=== PATIENT | female | born 2000 | race Caucasian/White ===

== ENCOUNTER 2024-04-04 08:12 | Oncology outpatient (recurring) (ONCR) | payer MEDICAID, SELFPAY ==
[2024-04-04] MEDS: rho(d) immune globulin 1,500 unit Syringe 1500 UNIT IM (08:21)
[2024-04-04 08:24] VITALS: BP 122/73; PULSE 90; TEMP 36.9; O2SAT 98
== END 2024-04-26 23:59 | disposition home or self-care (01) ==
LOC: ONCMED 08:12
PROVIDERS: Visit Provider Family Medicine
DX: Z67.11 Type A blood, Rh negative (principal); Z79.899 Other long term (current) drug therapy
CPT/HCPCS: 96372; J2790

== ENCOUNTER 2024-05-22 00:07 | Outpatient (CLI) | payer MEDICAID, SELFPAY ==
[2024-05-22 00:25] VITALS: BMI 27.2
[2024-05-22 00:29] VITALS: BP 132/69; PULSE 88
[2024-05-22 00:44] VITALS: BP 121/64; PULSE 104
[2024-05-22] MEDS: sodium chloride 0.9% 1,000 ML 999 ML IV (00:58)
[2024-05-22 02:32] VITALS: BP 122/69; PULSE 77
[2024-05-22 02:46] VITALS: BP 129/69; PULSE 77; O2SAT 95
== END 2024-05-22 02:56 | disposition home or self-care (01) ==
LOC: OPOB 00:08 → OBGYN 00:15
PROVIDERS: Visit Provider Family Medicine
DX: O26.899 Other specified pregnancy related conditions, unspecified trimester (principal); Z3A.00 Weeks of gestation of pregnancy not specified; R10.9 Unspecified abdominal pain
CPT/HCPCS: 83986; J7030

== ENCOUNTER 2024-06-05 18:20 | Outpatient (CLI) | payer MEDICAID, SELFPAY ==
[2024-06-05] VITALS (14 sets, daily range): BP systolic 124–137; BP diastolic 71–81; PULSE 78–130; RESP 17; O2SAT 98–99; BMI 27.6
[2024-06-05 18:59] LABS: Nitrazine Paper, PH Negative
[2024-06-05 19:07] LABS: Bacteria Urine 2+ /hpf; Hyaline Casts Urine 0-4 /lpf; RBC Urine 0-2 /hpf (0-2); WBC Urine 0-5 /hpf (0-5)
[2024-06-05 19:20] LABS: Bilirubin Urine Neg (Negative); Blood Urine Neg (Negative); Glucose Urine UA Norm (Normal); Ketones Urine Negative (Negative); Leukocyte Esterase Urine 2+ (Negative); Nitrate Urine Negative (Negative); Protein Urine Neg (Negative); Urine Appearance Cloudy (CLEAR); Urine Color Yellow (Yellow); Urobilinogen Urine Norm (Negative); pH Urine 8 (5-7)
[2024-06-05 19:21] LABS: Add Urine Culture? Yes
[2024-06-05 19:40] LABS: Urine Creatinine 28 mg/dL (28-217); Urine Protein Random 5 mg/dL
[2024-06-05 19:43] LABS: UPRO/UCREAT Ratio 0.18 mg/mg CR
== END 2024-06-05 20:15 | disposition home or self-care (01) ==
LOC: OPOB 18:28 → OBGYN 18:28
PROVIDERS: Visit Provider Family Medicine
DX: O26.899 Other specified pregnancy related conditions, unspecified trimester (principal); Z3A.00 Weeks of gestation of pregnancy not specified; I10 Essential (primary) hypertension
CPT/HCPCS: 36415; 59025; 81001; 82570; 83986; 84156; 87086; 99211

== ENCOUNTER 2024-06-10 12:58 | Outpatient (CLI) | payer MEDICAID, SELFPAY ==
[2024-06-10 13:01] VITALS: BMI 27.6
[2024-06-10 13:06] VITALS: BP 127/80; PULSE 100
[2024-06-10 13:08] VITALS: RESP 13
[2024-06-10 13:21] VITALS: BP 138/79; PULSE 76
[2024-06-10 13:35] VITALS: BP 140/78; PULSE 88
[2024-06-10 13:47] VITALS: BP 140/78; PULSE 88; RESP 16
== END 2024-06-10 13:49 | disposition home or self-care (01) ==
LOC: OPOB 12:58 → OBGYN 12:59
PROVIDERS: Visit Provider Family Medicine
DX: O26.899 Other specified pregnancy related conditions, unspecified trimester (principal); Z3A.00 Weeks of gestation of pregnancy not specified; R10.9 Unspecified abdominal pain
CPT/HCPCS: 59025; 99211

== ENCOUNTER 2024-06-20 15:14 | Outpatient (CLI) | payer MEDICAID, SELFPAY ==
[2024-06-20 15:28] VITALS: BP 132/81; PULSE 91
[2024-06-20 15:43] VITALS: BP 125/74; PULSE 86
[2024-06-20 15:52] VITALS: BMI 28.1
[2024-06-20 16:04] LABS: Nitrazine Paper, PH Inconclusive
[2024-06-20 16:12] LABS: Actim Prom Negative
[2024-06-20 16:13] VITALS: BP 124/73; PULSE 89
[2024-06-20 16:28] VITALS: BP 123/69; PULSE 86
[2024-06-20] MEDS: fluconazole 100 mg Tablet 150 MG PO (16:40)
== END 2024-06-20 16:45 | disposition home or self-care (01) ==
LOC: OPOB 15:14 → OBGYN 15:15
PROVIDERS: Visit Provider Family Medicine
DX: O26.899 Other specified pregnancy related conditions, unspecified trimester (principal); Z3A.00 Weeks of gestation of pregnancy not specified; N89.8 Other specified noninflammatory disorders of vagina
CPT/HCPCS: 59025; 83986; 84112; 99211; J9999

== ENCOUNTER 2024-07-01 09:46 | Inpatient (IN) | payer MEDICAID, SELFPAY ==
[2024-07-01] VITALS (52 sets, daily range): BP systolic 109–146; BP diastolic 55–87; PULSE 55–93; RESP 16–17; TEMP 35.8–36.6; O2SAT 100; BMI 28.6
[2024-07-01 07:40] LABS: Basophils % 0.4 %; Eosinophils # 0.1 10^3/uL (0.0-0.8); Eosinophils % 0.9 %; Hematocrit 30.6 % (36-47); Lymphocytes # 1.9 10^3/uL (0.8-4.8); Lymphocytes % 16.5 %; Mean Corpuscular HGB Conc 32.7 g/dL (30-55); Mean Corpuscular Hemoglobin 27.8 pg (27-33); Mean Platelet Volume 11.2 fL (7.4-10.4); Monocytes # 1.3 10^3/uL (0.2-0.9); Monocytes % 11.7 %; Neutrophils # 7.68 10^3/uL (1.8-7.7); Neutrophils % 68.2 %; Nucleated Red Blood Cells % 0 %; Platelet Count 172 10^3/cmm (157-399); Red Cell Distribution Width 15.3 % (12.1-15.1); White Blood Count 11.26 10^3/uL (3.29-11.43)
[2024-07-01] MEDS: dextrose 5%-lactated ringers 1,000 ML 125 ML IV (07:40)
[2024-07-01] MEDS: miSOPROStol 100 mcg tablet 25 MCG VAGINAL ×3 (07:40→16:59)
[2024-07-01] MEDS: ampicillin 2,000 MG in sodium chloride 0.9% (plus) 50 ML 100 MG IV (07:41)
[2024-07-01] MEDS: ampicillin 1,000 MG in sodium chloride 0.9% (plus) 50 ML 100 MG IV ×4 (11:40→23:21)
--- NOTE | 2024-07-01 16:15 | P.HP_ITS ---
Providers/Chief Complaint 2 Admitting Physician: Rishi Engel MD Chief Complaint: IOL HPI DIRECTOR OF ASSESSING History of Present Illness Merced Oglesby is a 23 year old G1, P0 female That presents for induction of labor. The patient has not had any significant complications during . Patient is GBS negative. Patient's had occasional contractions but nothing consistent. Present Details : 1 Labs Rubella: Immune RPR: Negative GBS: Positive Review of Systems 2 General: Reports: 10 or more systems reviewed and unremarkable except in HPI and below Medications/Allergies Home Medications ?Medication ?Instructions ?Recorded ?Confirmed ?Last Taken ?Type prcczqps-zqt-Wu-FA 1 mg 1 tab PO DAILY 07/01/24 05/21/24 History tablet Allergies Allergy/AdvReac Type Severity Reaction Status Date / Time adhesive Allergy ALGY-Rash Verified 06/05/24 21:25 Vitals/I&O/Wt Last Vital Signs Temp 97.2 F L 07/01/24 11:45 Pulse 75 07/01/24 16:03 Resp 16 07/01/24 07:06 BP 126/82 07/01/24 16:03 O2 Del Method Room Air 07/01/24 07:45 07/01/24 07/01/24 07/01/24 06:59 14:59 22:59 Intake Total 300.000 / 300.000 0 / 300.000 Balance 300.000 / 300.000 0 / 300.000 Weight last 48 hrs Weight 83.007 kg Physical Exam 2 Const: COMMON NORMALS: no acute distress and patient oriented x3 Resp: COMMON NORMALS: normal respiratory effort, No retractions and No use of accessory muscles Cardio: COMMON NORMALS: no JVD, regular rate and regular rhythm GI: COMMON NORMALS: Normal to inspection, nondistended, normoactive bowel sounds present Extremity: COMMON NORMALS: no clubbing, cyanosis or edema Neuro: COMMON NORMALS: patient oriented x3, moves all extremities, no focal motor deficits and no sensory deficits noted Psych: COMMON NORMALS: mental status grossly normal Skin: COMMON NORMALS: no rashes or lesions noted Data 07/01/24 07:20 Results Labs OB ([facility]): 2 Blood Type A Negative Today Antibody Screen Negative Today Hct, (36-47) 30.6 % L Today Hgb, (11.27-16.99) 10.00 g/dL L Today Rho(D) Type Rh negative Today Plt Count, (157-399) 172 10^3/cmm Today Micro Urine Specimen 06/05/24 A&P Assessment and plan (1) Post term over 40 weeks: Proceed with Cytotec for cervical ripening. PDMP PDMP Reviewed: Not Reviewed Attestations 2 Medical Necessity Statement*: Admit for IOL. Anticipate 2 midnight stay. Coding Level of Care Code Acute Code for Chg Fwd Diagnoses Post term over 40 weeks O48.0
[2024-07-01] MEDS: lactated ringers 1,000 ML 999 ML IV (19:11)
--- NOTE | 2024-07-01 20:29 | ANES.PREANE2 ---
Pre-Anesthetic Assessment Height/Weight: Height 1.7 m Weight 83.007 kg Temp Pulse Resp BP Pulse Ox O2 Del Method 96.4 F L 74 17 133/66 100 Room Air 07/01/24 18:50 07/01/24 20:28 07/01/24 18:50 07/01/24 20:28 07/01/24 20:22 07/01/24 07:45 Preop Diagnosis: Labor pain MALDONADO Was Beta Teri taken within 24 hours: N/A Was Clonidine taken within 24 hours: N/A Social No tobacco Exam alert, oriented x 3, clear to auscultation bilaterally and regular rate & rhythm Airway Submandibular: within normal limits Cervical ROM: within normal limits Mallampati: Class II Dentition: full History/ROS No significant history except as noted CV/HEM Arrythmia Cardiac ablation 2016 None reported Hepatic None reported GI None reported Metabolic None reported Musc/skel Scoliosis Neuropsych None reported Anesthetic Plan ASA status: 2 Anesthesia: Anesthesia Evaluation and Regional (specify below) (MALDONADO) Risk of > 500 ml blood loss (7ml/kg in children): No Medications/Allergies Home Medications ?Medication ?Instructions ?Recorded ?Confirmed ?Last Taken ?Type qfilafss-wqa-Uq-FA 1 mg 1 tab PO DAILY 05/22/24 07/01/24 05/21/24 History tablet Allergies Allergy/AdvReac Type Severity Reaction Status Date / Time adhesive Allergy ALGY-Rash Verified 06/05/24 21:25 Current Medications Generic Name Dose Route Start Last Admin Trade Name Freq PRN Reason Stop Dose Admin Dextrose/Lactated Ringer's 1,000 mls @ 125 mls/hr 07/01/24 07:15 07/01/24 16:08 Dextrose 5%-Lactated Ringers IV 0 mls/hr .Q8H ROSALIE Infusion Ampicillin Sodium 1,000 mg/ 50 mls @ 100 mls/hr 07/01/24 11:15 07/01/24 19:41 Sodium Chloride IV Infused Q4H ROSALIE Infusion Protocol Lactated Ringer's 1,000 mls @ 999 mls/hr 07/01/24 18:55 07/01/24 19:11 Lactated Ringers IV 999 mls/hr .Q1H1M PRN Administration See label comments PFSH Anesthesia Female Reproductive History : 1 Data Anesthesia 07/01/24 07:20 Short CBC 07/01/24 Range/Units 07:20 WBC 11.26 (3.29-11.43) 10^3/uL Hgb 10.00 L (11.27-16.99) g/dL Hct 30.6 L (36-47) % MCV 85.0 (85-98) fl Plt Count 172 (157-399) 10^3/cmm Neut % (Auto) 68.2 % Neut # (Auto) 7.68 (1.8-7.7) 10^3/uL Blood Bank 07/01/24 07:20 Blood Type A Negative Rho(D) Type Rh negative Antibody Screen Negative
--- NOTE | 2024-07-01 20:32 | ANES.PROC ---
Anesthesia Procedures Procedure/Date: 07/01/24 Epidural: Time Out Performed: Yes Consents Signed: Procedure Consent Consent: requested by attending/covering physician, from patient, risks and benefits reviewed and patient agrees to proceed Lumbar Level: L2-L3 Epidural position: sitting Epidural procedure: sterile prep of area, 1% lidocaine to numb the area, 18 g needle, neg for paresthesia, test dose given, 1.5% xylocaine 1:200k epi (5cc), 0.2% Ropivacaine bolus ml (4cc and Fentanyl 100mcg), placed PCEA, no systemic response, sterile dressing applied and 0.2% Ropiavacaine @ mls/hr (13cc/hour) Additional Comments: Pt tolerated well
[2024-07-01] MEDS: ROPivacaine syringe 100 MG/50 ML SYRINGE 13 MG EPIDURAL (20:36)
[2024-07-01] MEDS: oxytocin 30 UNIT/500 ML BAG IV (22:00)
[2024-07-02] VITALS (26 sets, daily range): BP systolic 103–147; BP diastolic 55–80; PULSE 56–125; RESP 14–17; TEMP 36.5–37.2; O2SAT 97–99
[2024-07-02] MEDS: ROPivacaine syringe 100 MG/50 ML SYRINGE 13 MG EPIDURAL (00:12)
[2024-07-02] MEDS: sodium chloride 0.9% 1,000 ML 999 ML IV (01:49)
[2024-07-02] MEDS: ampicillin 1,000 MG in sodium chloride 0.9% (plus) 50 ML 100 MG IV (03:42)
--- NOTE | 2024-07-02 04:44 | PM.DELIVERY ---
Delivery Note: Date of delivery: July 02, 2024 Pre-delivery diagnoses: Postterm intrauterine Post-delivery diagnoses: Same, viable female Procedure: Spontaneous vaginal delivery Delivering Physician: Christian Engel MD Estimated blood loss (mL): 200 Pre-Delivery Course: This is a 23-year-old female that presented for induction of labor for postdates. Patient was started on Cytotec x 3. Patient had good response to the Cytotec and eventually had spontaneous rupture membranes. The patient had progressed to 4 cm but contractions were erratic at this point so labor was augmented with Pitocin. The patient slowly progressed to completion as expected. Delivery: Once patient was completely dilated the patient was placed into the normal lithotomy position and started pushing with contractions. The patient pushed with contractions for over 1 and half hours before eventually delivering infants head followed by shoulders and body. True knot was noted in the umbilical cord. was placed on mother's abdomen and after appropriate delay the cord was clamped and cut. Cord blood was obtained. Placenta was then delivered intact. View of the perineum did not demonstrate any significant tear but the patient did have a right labial tear that was actively bleeding. This was repaired with 3-0 Vicryl. To the end of the procedure the uterus was firm and below the umbilicus and bleeding was controlled. Post-Delivery Status: Stable A&P Assessment and plan (1) Spontaneous vaginal delivery: Proceed with routine care PDMP PDMP Reviewed: Not Reviewed Coding Level of Care Code Acute Code for Chg Fwd Diagnoses Spontaneous vaginal delivery O80
--- NOTE | 2024-07-02 04:48 | P.PN_ITS ---
NUCLEAR SCIENTIST Subjective 2 Subjective: Interval history: This is a 23-year-old G1, P1 that delivered a viable infant female this morning via spontaneous vaginal delivery. Patient is doing well and has no acute concerns at this time. Vital signs are stable. Labor: Station: +1 Amniotic Membrane Status: Ruptured Monitor Mode: External Contraction Pattern: Irregular Status: Category I Post /CS: Patient comments OB post-: no complaints [place] baby status: doing well feeding status: exclusively breast feeding Vitals/I&O/Wt Last Vital Signs Temp 98.9 F 07/02/24 03:42 Pulse 125 H 07/02/24 04:13 Resp 17 07/01/24 18:50 BP 117/73 07/02/24 04:13 Pulse Ox 100 07/01/24 20:22 O2 Del Method Room Air 07/01/24 07:45 07/01/24 07/01/24 07/02/24 14:59 22:59 06:59 Intake Total 300.000 / 999.183 5195.00 / 2089.000 1413.250 / 3502.250 Balance 300.000 / 160.362 5197.00 / 2089.000 1413.250 / 3502.250 Weight last 48 hrs Weight 83.007 kg Physical Exam 2 Const: COMMON NORMALS: no acute distress and patient oriented x3 Neck/C-Spine: COMMON NORMALS: no JVD Resp: COMMON NORMALS: normal respiratory effort, No retractions and No use of accessory muscles Cardio: COMMON NORMALS: no JVD, regular rate and regular rhythm RATE: r egular rate RHYTHM: regular rhythm GI: OTHER: Uterus firm and below umbilicus Extremity: COMMON NORMALS: no clubbing, cyanosis or edema Neuro: COMMON NORMALS: patient oriented x3, moves all extremities, no focal motor deficits and no sensory deficits noted Psych: COMMON NORMALS: mental status grossly normal Skin: COMMON NORMALS: no rashes or lesions noted GENERAL SKIN EXAM: no rashes or lesions noted Urinary Catheter Management: Peterson: Cath Placed During This Visit: yes Urinary Catheter Date of Insertion: 07/01/24 Urinary Catheter Time of Insertion: 20:44 Data 07/01/24 07:20 A&P Assessment and plan (1) Spontaneous vaginal delivery: Continue routine care PDMP PDMP Reviewed: Not Reviewed Attestations 2 Medical Necessity Statement*: Patient admitted for induction of labor. Anticipate 2 midnight stay. Coding Level of Care Code Acute Code for Chg Fwd Diagnoses Spontaneous vaginal delivery O80
[2024-07-02] MEDS: ibuprofen 800 mg tablet PO ×3 (08:41→21:35)
[2024-07-02] MEDS: PRENATAL VIT NO.130/IRON/FOLIC 1 EACH TABLET PO (08:41)
[2024-07-02] MEDS: docusate sodium 100 mg Capsule PO ×2 (08:41→21:35)
--- NOTE | 2024-07-02 16:39 | ANE.PACU2 ---
Inpatient post-anesthesia follow up: Airway intact: Yes Vital signs: Temperature 97.9 F Pulse Rate 102 Respiratory Rate 16 Blood Pressure 106/67 Pulse Oximetry 98 Oxygen Delivery Me thod Room Air Oxygen Flow Rate Fraction of Inspir ed Oxygen Hydration adequate: Yes Nausea and vomiting: No Pain level: 1 Mental status: Baseline Epidural Start/End: Epidural Start Date: 07/01/24 Epidural Start Time: 20:02 Epidural End Date: 07/02/24 Epidural End Time: 05:00
[2024-07-02 16:40] LABS: Hematocrit 26.8 % (36-47); Mean Corpuscular HGB Conc 32.5 g/dL (30-55); Mean Corpuscular Hemoglobin 27.8 pg (27-33); Mean Corpuscular Volume 85.6 fl (85-98); Mean Platelet Volume 11.1 fL (7.4-10.4); Platelet Count 153 10^3/cmm (157-399); Red Blood Count 3.13 10^6/uL (3.85-5.65); Red Cell Distribution Width 15.7 % (12.1-15.1); White Blood Count 14.31 10^3/uL (3.29-11.43)
[2024-07-03 04:39] VITALS: BP 117/72; PULSE 73; RESP 16; TEMP 36.7; O2SAT 98
--- NOTE | 2024-07-03 06:45 | PM.OBGYDC ---
Discharge Providers URBAN RENEWAL MANAGER Date of Admission: 07/01/24 09:46 Date of Discharge: 07/03/24 Attending Provider at Admission: Rishi Engel MD Attending Provider at Discharge: Rishi Engel MD Diagnoses at Discharge Discharge Diagnosis (1) Spontaneous vaginal delivery: Status: Acute Reason for Visit Reason for Visit: IOL Hospital Course Hospital Course This is a 23-year-old G1, P1 that presented for induction of labor. Patient was induced successively and delivered vaginally a viable female without complication. care was unremarkable. Information Peripartum Data: Infant Delivery Method: Vaginal Laceration description: Labial Episiotomy description: None complications: none [place]: 1: Gender: Female Disposition of : home Physical Exam Const: COMMON NORMALS: no acute distress and patient oriented x3 Neck/C-Spine: COMMON NORMALS: no JVD Resp: COMMON NORMALS: normal respiratory effort, No retractions and No use of accessory muscles Cardio: COMMON NORMALS: no JVD, regular rate and regular rhythm RATE: regular rate RHYTHM: regular rhythm GI: OTHER: Uterus firm and below umbilicus Extremity: COMMON NORMALS: no clubbing, cyanosis or edema Neuro: COMMON NORMALS: patient oriented x3, moves all extremities, no focal motor deficits and no sensory deficits noted Psych: COMMON NORMALS: mental status grossly normal Skin: COMMON NORMALS: no rashes or lesions noted GENERAL SKIN EXAM: no rashes or lesions noted Urinary Catheter Management: Peterson: Cath Placed During This Visit: yes, but has since been removed by the nurse Reason for Continuing Indwelling Catheter: Decision to DC Catheter Urinary Catheter Date of Insertion: 07/01/24 Urinary Catheter Time of Insertion: 20:44 Date Urinary Catheter Removed: 07/02/24 Time Urinary Catheter Discontinued: 02:30 Discharge Data Studies Completed and Pending Laboratory Results WBC 14.31 10^3/uL (3.29-11.43) H 07/02/24 16:30 RBC 3.13 10^6/uL (3.85-5.65) L 07/02/24 16:30 Hgb 8.70 g/dL (11.27-16.99) L 07/02/24 16:30 Hct 26.8 % (36-47) L 07/02/24 16:30 MCV 85.6 fl (85-98) 07/02/24 16:30 MCH 27.8 pg (27-33) 07/02/24 16:30 MCHC 32.5 g/dL (30-55) 07/02/24 16:30 RDW 15.7 % (12.1-15.1) H 07/02/24 16:30 Plt Count 153 10^3/cmm (157-399) L 07/02/24 16:30 MPV 11.1 fL (7.4-10.4) H 07/02/24 16:30 Neut % (Auto) 68.2 % 07/01/24 07:20 Lymph % (Auto) 16.5 % 07/01/24 07:20 [place] % (Auto) 11.7 % 07/01/24 07:20 Eos % (Auto) 0.9 % 07/01/24 07:20 Baso % (Auto) 0.4 % 07/01/24 07:20 Neut # (Auto) 7.68 10^3/uL (1.8-7.7) 07/01/24 07:20 Lymph # (Auto) 1.9 10^3/uL (0.8-4.8) 07/01/24 07:20 [place] # (Auto) 1.3 10^3/uL (0.2-0.9) H 07/01/24 07:20 Eos # (Auto) 0.1 10^3/uL (0.0-0.8) 07/01/24 07:20 Baso # (Auto) 0.0 10^3/uL (0.0-0.1) 07/01/24 07:20 Nucleated RBC % (auto) 0 % 07/01/24 07:20 Nucleated RBCs # 0.0 /100WBC 07/01/24 07:20 Blood Type A Negative 07/01/24 07:20 Rho(D) Type Rh negative 07/01/24 07:20 Antibody Screen Negative 07/01/24 07:20 Vitals Last Vital Signs Temp 98.1 F 07/03/24 04:39 Pulse 73 07/03/24 04:39 Resp 16 07/03/24 04:39 BP 117/72 07/03/24 04:39 Pulse Ox 98 07/03/24 04:39 O2 Del Method Room Air 07/03/24 04:39 Results Labs OB ([facility]): Blood Type A Negative 07/01/24 Antibody Screen Negative 07/01/24 Hct, (36-47) 26.8 % L 07/02/24 Hgb, (11.27-16.99) 8.70 g/dL L 07/02/24 Rho(D) Type Rh negative 07/01/24 Plt Count, (157-399) 153 10^3/cmm L 07/02/24 Micro Urine Specimen 06/05/24 Discharge Plan Discharge Patient Disposition: Home Condition: Stable Prescriptions: Continued 1 mg Tablet 1 tab PO DAILY Referrals: Rishi Engel MD [Physician, Family Practice] Discharge Diet: Usual diet Discharge Activity: Limit activity as instructed Patient Instructions: Depression (DC), Opioid Safety (DC), Preeclampsia and Eclampsia After Delivery (GEN), Hemorrhage (DC), OB Discharge Report, OB Food/Drug Interaction Guide, OB Care at Home, Opioid Safety, OB Vaginal Deliveries, Abnormal Bleeding Discharge Attestations URBAN RENEWAL MANAGER Time Spent in Discharge Care*: less than 30 min Coding Level of Care Code Acute Code for Chg Fwd Diagnoses Spontaneous vaginal delivery O80
[2024-07-03] MEDS: ibuprofen 800 mg tablet PO (09:29)
[2024-07-03] MEDS: docusate sodium 100 mg Capsule PO (09:29)
[2024-07-03] MEDS: PRENATAL VIT NO.130/IRON/FOLIC 1 EACH TABLET PO (09:29)
[2024-07-03] MEDS: benzocaine-menthol 78 gm Canister 1 SPRAY TOPICAL (09:33)
[2024-07-03 10:00] VITALS: BP 106/67; PULSE 102; RESP 16; TEMP 36.6
== END 2024-07-03 10:24 | disposition home or self-care (01) | DRG 807 ==
LOC: OPOB 09:46 → OBGYN 09:46
PROVIDERS: Admitting Provider Family Medicine; Visit Provider Family Medicine
DX: O48.0 Post-term pregnancy (principal); Z37.0 Single live birth; Z3A.40 40 weeks gestation of pregnancy; O70.0 First degree perineal laceration during delivery
CPT/HCPCS: 36415; 51702; 59025; 59409; 85025; 85027; 86850; 86900; 96374; 99211; J0290; J2590; J2795; J3010; J7030; J7120; J7121; J9999